=== PATIENT | male | born 2000 | race Caucasian/White ===

== ENCOUNTER 2020-10-10 17:56 | Outpatient (REF) | payer MEDICAID, SELFPAY ==
--- NOTE | 2020-10-10 18:15 | MR_ITS ---
EXAMINATION: MR LUMBAR SPINE WITHOUT CONTRAST CLINICAL INFORMATION: Lumbago with sciatica right side. COMPARISON: Lumbar spine 08/21/2015 TECHNIQUE: MRI of the lumbar spine was obtained using routine sequences without contrast. FINDINGS: There is normal lumbar lordosis. The vertebral heights, alignment, disc heights, and disc signal are preserved. There is loss of T11-T12 disc height with disc desiccation change. At T12-L1 disc level, there is mild broad-based diffuse disc bulge without disc herniation or spinal stenosis. The neural foramina are patent bilaterally. The L1-L2, L2-L3, L3-L4 disc levels are unremarkable. At L4-L5 disc level, there is a broad-based diffuse bulge indenting the ventral thecal sac and resulting in mild AP canal stenosis. The neural foramina are patent bilaterally. At L5-S1 disc level, there is minimal bulge but no disc herniation or spinal stenosis. The neural foramina are patent bilaterally. The bone marrow signal, intraspinal signal and the paravertebral soft tissues are normal. Conus medullaris terminates at T12-L1 disc level and appears normal in morphology. MR/MR lumbar spine wo con IMPRESSION: Broad-based disc bulge T11-T12 disc level with disc desiccation change but no spinal canal stenosis. Mild diffuse bulge at L4-L5 disc level with a small 4 mm disc herniation adjacent to the exiting left L5 nerve root on axial slice 28/7.
== END 2020-10-10 17:57 | disposition home or self-care (01) ==
LOC: HO.MRI 17:56
PROVIDERS: PCP Pediatrics; Visit Provider Pediatrics
DX: M54.41 Lumbago with sciatica, right side (principal)
CPT/HCPCS: 72148

== ENCOUNTER 2021-02-19 10:57 | Emergency (ER) | payer MEDICAID, SELFPAY ==
--- NOTE | ~2021-02-19 | CT_ITS ---
EXAMINATION: CT ABDOMEN AND PELVIS WITHOUT CONTRAST CLINICAL INFORMATION: Epigastric pain 952 COMPARISON: Previous CT of the abdomen and pelvis September 2019 TECHNIQUE: Multidetector volumetric imaging was performed from the superior aspect of the liver through the pubic symphysis. Sagittal and coronal reformatted images were obtained on the technologist's workstation. This CT examination was performed using dose optimization techniques as appropriate, variously including the following: *Automated exposure control *Adjustment of mA and/or kV according to patient size (this includes techniques or standardized protocols for targeted exams where dose is matched to indication/reason for exam; i.e. extremities or head) *Use of iterative reconstruction technique DLP: 952 mGy-cm FINDINGS: LUNG BASES: There is a tiny 1 to 2 mm peripheral left lower lobe nodule axial image 13 series 3 that is stable. The lung bases are otherwise clear. LIVER, GALLBLADDER, AND BILIARY TREE: There is fatty infiltration of the liver. The liver is otherwise unremarkable. The gallbladder is unremarkable. There is no biliary duct dilatation. PANCREAS: Unremarkable. SPLEEN: Unremarkable. ADRENAL GLANDS: Unremarkable. KIDNEYS AND URETERS: The kidneys are normal in size, shape, and attenuation. No hydronephrosis, hydroureter, or calculi seen. No perinephric stranding. BLADDER: Unremarkable. GASTROINTESTINAL TRACT: The small and large bowel are unremarkable. The appendix is unremarkable. ABDOMINAL WALL: No significant hernia is appreciated. LYMPH NODES: Normal. VASCULAR: Unremarkable. PELVIC VISCERA: Unremarkable. OSSEOUS STRUCTURES: Unremarkable. CT/CT abdomen pelvis wo con IMPRESSION: Fatty infiltration of the liver otherwise unremarkable exam.
[2021-02-19 12:01] VITALS: BP 157/97; PULSE 57; RESP 18; TEMP 36.9; O2SAT 99; BMI 37.6
[2021-02-19 12:04] VITALS: PULSE 64
[2021-02-19 12:24] LABS: MANUAL DIFF FLAG NO
[2021-02-19 12:27] LABS: Basophils Absolute Auto 0.1 X10*3/uL (0.0-0.2); Basophils Percent Auto 0.5 % (0-2); Eosinophils Absolute Auto 0.1 X10*3/uL (0.0-0.4); Eosinophils Percent Auto 1.1 % (0-4); Hematocrit 48.1 % (42-52); Imm Gran Abs Auto 0.01 X10*3/uL (0.00-0.03); Imm Gran Pct Auto 0.1 % (0.0-0.4); Lymphocytes Absolute Auto 3.6 X10*3/uL (1.2-4.9); Lymphocytes Percent Auto 38.8 % (20-40); Mean Corpuscular HGB Conc 33.3 g/dl (31.0-36.0); Mean Corpuscular Hemoglobin 28.8 pg (27.0-33.0); Mean Corpuscular Volume 86.7 fL (80-98); Mean Platelet Volume 10.7 fL (9.4-12.4); Monocytes Absolute Auto 0.7 X10*3/uL (0.1-1.2); Monocytes Percent Auto 6.9 % (2-11); Neutrophils Absolute Auto 4.9 X10*3/uL (2.0-8.3); Neutrophils Percent Auto 52.6 % (45-73); Platelet Count 225 X10*3/uL (160-400); Red Blood Count 5.55 X10*6/uL (4.60-5.80); Red Cell Distribution Width 12.3 % (11.0-16.0); White Blood Count 9.4 X10*3/uL (4.8-10.8)
[2021-02-19 12:48] LABS: Glucose Urine UA NEG (NEG); Leukocyte Esterase Urine NEG (NEG); Nitrite Urine NEG (NEG); Specific Gravity - Urine 1.025 (1.005-1.025); Urine Blood NEG (NEG); Urine Ketones NEG (NEG); Urine Protein NEG (NEG-TRACE)
[2021-02-19 12:49] LABS: Appearance Urine CLEAR; Color Urine YELLOW
[2021-02-19 12:57] LABS: Alanine Aminotransferase 51 U/L (0-40); Albumin Level 4.9 g/dL (3.5-5.0); Alkaline Phosphatase 73 U/L (39-117); Anion Gap 11 (12-20); Aspartate Amino Transferase 38 U/L (5-37); Bilirubin Direct < 0.2 mg/dL (0.0-0.5); Bilirubin Total 0.5 mg/dL (0.0-1.0); Blood Urea Nitrogen 13 mg/dL (9-16); Calcium 9.5 mg/dL (8.4-10.2); Carbon Dioxide 27 mmol/L (22-29); Chloride 105 mmol/L (96-108); Creatinine Clr Calc Pharmacy 158.5; Estimated Glomerular Filt Rate > 60; Glucose Random 81 mg/dL (60-115); Lipase 23 U/L (8-78); Potassium 4.3 mmol/L (3.3-5.1); Sodium 139 mmol/L (135-145); Total Protein 8.1 g/dL (6.5-8.0)
--- NOTE | 2021-02-19 13:55 | ED_ITS ---
HPI - Abdominal Pain General Chief Complaint: Abdominal Pain Stated Complaint: abd pain Time Seen by Provider: 02/19/21 13:55 Source: patient Mode of arrival: ambulatory Limitations: no limitations History of Present Illness HPI narrative: 20 yo male with hx of chronic back pain takes naprosyn intermittently, recently on steroid dose taper finished about 2 weeks ago c/o epigastric pain for the last two days, even pushed to have a BM yesterday and noted pain in his abdomen at that time became sweaty and passed out, did hit side of head, has small abrasion above L eye - GCS 15, no vomiting today no AC therapy MD elicited complaint: abdominal pain Onset (ago): day(s) (2) Pain Consistency: intermittent Location: epigastric Severity: mild Quality: aching, fullness and dull Radiation: none Migration to: no migration Exacerbating factors: eating Relieving factors: nothing Context: other (NSAID and steroid use) Associated symptoms: nausea and syncope Related Data Previous Rx's Medication Instructions Recorded lidocaine 1 patch TOPICAL DAILY PRN #10 ea 02/19/21 omeprazole 20 mg PO BID 14 Days #28 cap 02/19/21 Allergies Allergy/AdvReac Type Severity Reaction Status Date / Time cat dander [CAT] Allergy Intermediate ITCHY Verified 02/19/21 12:00 SWOLLEN EYES dog dander [DOG] Allergy Intermediate ITCHY Verified 02/19/21 12:00 WATERY EYES Review of Systems Review of Systems Constitutional : No Weight loss, No Fever, No Chills ENT/Mouth : No sore throat, No Rhinorrhea Eyes: No Swelling, No Redness Cardiovascular : No Chest Pain, No SOB, NoEdema Respiratory : No Cough, No Sputum, No Wheezing Gastrointestinal : Positive Nausea, Positive Vomiting, no Diarrhea, positive abdominal Pain, No Hematochezia, No Melena Genitourinary : No Dysuria, No Urinary Frequency, No Hematuria, No Urgency Musculoskeletal : No joint pain, No Myalgias, No Joint Swelling Skin : No Skin Lesions, No rash Neuro : No Weakness, No Numbness, No Dizziness, No Headache, pos syncope Psych : No Anxiety/Panic, No Depression Heme/Lymph: No Bruising, No Lymphadenopathy Endocrine : No Polyuria, No Polydipsia All other systems reviewed and are negative. Physical Exam Vital Signs: Vital Signs: Last Vital Signs Temp 98.5 F 02/19/21 12:01 Pulse 64 05/10/21 12:04 Resp 18 02/19/21 12:01 BP 157/97 H 02/19/21 12:01 Pulse Ox 99 02/19/21 12:01 Body Mass Index 37.6 Appearance: Alert. Oriented X3. No acute distress. Eyes: Pupils equal, round and reactive to light. ENT: Pharynx normal. Abrasion above L eye near eyebrow line Neck: Normal inspection. Neck supple. CVS: Normal heart rate and rhythm. Pulses normal. Respiratory: No respiratory distress. Breath sounds normal. Abdomen: Soft and mild epigastric ttp no rebound or guarding, negative Sylvester's Skin: Skin warm and dry. Normal skin color. Normal skin turgor. Extremities: No lower extremity edema. No calf ttp Neuro: Oriented X 3. No motor deficit. No sensory deficit. Course Course Course Narrative: negative CT scan stable for DC MDM - Abdominal Pain MDM Narrative Medical decision making narrative: 20 yo male with hx of chronic back pain takes naprosyn intermittently, recently on steroid dose taper finished about 2 weeks ago c/o epigastric pain for the last two days, even pushed to have a BM yesterday and noted pain in his abdomen at that time became sweaty and passed out, did hit side of head, has small abrasion above L eye - GCS 15, no vomiting today no AC therapy at this time will need labs, CT scan to evaluate GB/pancreas though I suspect PUD from NSAIDs and recent prednisone use, syncope was likely vasovagal in nature, GCS 15 head injury 24 hours old and no vomiting no concern for ICH, will likely need PPI use for 2 weeks dispo per results and findings. Lab Data Result diagrams: 02/19/21 12:17 02/19/21 12:17 Labs: Lab Results 02/19/21 02/19/21 02/19/21 Range/Units 12:17 12:17 12:17 WBC 9.4 (4.8-10.8) X10*3/uL RBC 5.55 (4.60-5.80) X10*6/uL Hgb 16.0 (14.0-18.0) g/dl Hct 48.1 (42-52) % MCV 86.7 (80-98) fL MCH 28.8 (27.0-33.0) pg MCHC 33.3 (31.0-36.0) g/dl RDW 12.3 (11.0-16.0) % Plt Count 225 (160-400) X10*3/uL MPV 10.7 (9.4-12.4) fL Immature Gran % (Auto) 0.1 (0.0-0.4) % Neut % (Auto) 52.6 (45-73) % Lymph % (Auto) 38.8 (20-40) % [place] % (Auto) 6.9 (2-11) % Eos % (Auto) 1.1 (0-4) % Baso % (Auto) 0.5 (0-2) % Lymph # (Auto) 3.6 (1.2-4.9) X10*3/uL [place] # (Auto) 0.7 (0.1-1.2) X10*3/uL Eos # (Auto) 0.1 (0.0-0.4) X10*3/uL Baso # (Auto) 0.1 (0.0-0.2) X10*3/uL Abs Immat Gran (auto) 0.01 (0.00-0.03) X10*3/uL Absolute Neuts (auto) 4.9 (2.0-8.3) X10*3/uL Absolute Nucleated RBC 0.000 (0.0-0.012) X10*3/uL Nucleated RBC % (auto) 0.0 (0.0-0.2) /100WBC Sodium 139 (135-145) mmol/L Potassium 4.3 (3.3-5.1) mmol/L Chloride 105 (96-108) mmol/L Carbon Dioxide 27 (22-29) mmol/L Anion Gap 11 L (12-20) BUN 13 (9-16) mg/dL Creatinine 0.99 (0.5-1.4) mg/dL Estim Creat Clear Calc 158.5 Estimated GFR > 60 Random Glucose 81 (60-115) mg/dL Calcium 9.5 (8.4-10.2) mg/dL Total Bilirubin 0.5 (0.0-1.0) mg/dL Direct Bilirubin < 0.2 (0.0-0.5) mg/dL AST 38 H (5-37) U/L ALT 51 H (0-40) U/L Alkaline Phosphatase 73 (39-117) U/L Total Protein 8.1 H (6.5-8.0) g/dL Albumin 4.9 (3.5-5.0) g/dL Lipase 23 (8-78) U/L Urine Color YELLOW Urine Appearance CLEAR Urine pH 6.0 (5.0-8.0) Ur Specific [place] 1.025 (1.005-1.025) Urine Protein NEG (NEG-TRACE) MG/DL Urine Glucose (UA) NEG (NEG) MG/DL Urine Ketones NEG (NEG) MG/DL Urine Blood NEG (NEG) Urine Nitrite NEG (NEG) Ur Leukocyte Esterase NEG (NEG) Discharge Plan Discharge Clinical Impression: Fatty liver, Peptic ulcer disease Patient Disposition: Home, Self-Care Instructions: Peptic Ulcer (ED), Non-Alcoholic Fatty Liver Disease (ED) Additional Instructions: return to ED for any worsening symptoms or concerns Prescriptions: New omeprazole 20 mg capsule,delayed release(DR/EC) 20 mg PO BID 14 Days Qty: 28 RF: 0 lidocaine 4 % adhesive patch,medicated 1 patch topical DAILY PRN (Reason: pain) Qty: 10 RF: 0 Referrals: [facility] [Primary Care Provider] - 2 days (if not better) Stand Alone Forms: Work/School Release [facility] Past Medical History Attestation statement: The following information was validated with the patient. Medical History Back pain Social History Social History (Updated 02/19/21 @ 14:13 by Preethi Justice DO) Alcohol intake: never Smoking Status: Never smoker Advance Directives: Yes Advance Directives Information Provided: Yes Advance Directives on File: No
--- NOTE | 2021-02-19 14:04 | ECG_ITS ---
Test Reason : CHEST PAIN Blood Pressure : / mmHG Vent. Rate : 060 BPM Atrial Rate : 060 BPM P-R Int : 154 ms QRS Dur : 088 ms QT Int : 406 ms P-R-T Axes : 026 071 026 degrees QTc Int : 406 ms Normal sinus rhythm with sinus arrhythmia Normal ECG No previous ECGs available Referred By: Preethi Justice Electronically Signed By:Prashant Lyon
[2021-02-19] MEDS: Omeprazole 20 MG CAPSULE.DR PO (14:16)
[2021-02-19 15:27] VITALS: BP 176/107; PULSE 68; RESP 16; O2SAT 99
== END 2021-02-19 15:33 | disposition home or self-care (01) ==
PROVIDERS: Emergency Provider Emergency Medicine
DX: K76.0 Fatty (change of) liver, not elsewhere classified (principal); K27.9 Peptic ulcer, site unspecified, unspecified as acute or chronic, without hemorrhage or perforation; Z79.899 Other long term (current) drug therapy
CPT/HCPCS: 36415; 74176; 80048; 80076; 81003; 83690; 85025; 93005; 99284

== ENCOUNTER 2021-06-08 12:43 | Emergency (ER) | payer SELFPAY ==
[2021-06-08 13:35] VITALS: BP 144/81; PULSE 60; RESP 18; TEMP 37; O2SAT 99; BMI 39.7
[2021-06-08 15:02] LABS: Glucose Urine UA NEG (NEG); Leukocyte Esterase Urine NEG (NEG); Nitrite Urine NEG (NEG); Specific Gravity - Urine >= 1.030 (1.005-1.025); Urine Blood NEG (NEG); Urine Ketones NEG (NEG); Urine Protein NEG (NEG-TRACE)
[2021-06-08 15:06] LABS: Appearance Urine HAZY; Color Urine YELLOW
[2021-06-08 16:19] LABS: MANUAL DIFF FLAG NO
[2021-06-08 16:22] LABS: Basophils Percent Auto 0.4 % (0-2); Eosinophils Absolute Auto 0.1 X10*3/uL (0.0-0.4); Eosinophils Percent Auto 1.3 % (0-4); Hematocrit 44.8 % (42-52); Hemoglobin 15.1 g/dl (14.0-18.0); Imm Gran Abs Auto 0.02 X10*3/uL (0.00-0.03); Imm Gran Pct Auto 0.2 % (0.0-0.4); Lymphocytes Percent Auto 40.1 % (20-40); Mean Corpuscular HGB Conc 33.7 g/dl (31.0-36.0); Mean Corpuscular Volume 86.2 fL (80-98); Mean Platelet Volume 11.2 fL (9.4-12.4); Monocytes Absolute Auto 0.8 X10*3/uL (0.1-1.2); Monocytes Percent Auto 7.5 % (2-11); Neutrophils Absolute Auto 5.1 X10*3/uL (2.0-8.3); Neutrophils Percent Auto 50.5 % (45-73); Platelet Count 203 X10*3/uL (160-400); Red Cell Distribution Width 12.4 % (11.0-16.0)
[2021-06-08 16:48] LABS: Alanine Aminotransferase 63 U/L (0-40); Albumin Level 4.7 g/dL (3.5-5.0); Alkaline Phosphatase 68 U/L (39-117); Anion Gap 10 (12-20); Aspartate Amino Transferase 41 U/L (5-37); Bilirubin Total 0.6 mg/dL (0.0-1.0); Blood Urea Nitrogen 15 mg/dL (9-16); Calcium 9.6 mg/dL (8.4-10.2); Carbon Dioxide 29 mmol/L (22-29); Chloride 107 mmol/L (96-108); Creatinine Clr Calc Pharmacy 149.5; Estimated Glomerular Filt Rate > 60; Glucose Random 85 mg/dL (60-115); Potassium 4.4 mmol/L (3.3-5.1); Sodium 142 mmol/L (135-145); Total Protein 7.6 g/dL (6.5-8.0)
[2021-06-08 17:26] VITALS: BP 138/74; PULSE 54; RESP 16; O2SAT 98
--- NOTE | 2021-06-08 17:35 | ED_ITS ---
HPI - Abdominal Pain General Chief Complaint: Abdominal Pain Stated Complaint: abd pain Time Seen by Provider: 06/08/21 17:14 Source: patient Mode of arrival: ambulatory Limitations: no limitations History of Present Illness HPI narrative: Patient comes emergency room complaining of 1 month of nausea and intermittent abdominal cramping. Patient states symptoms he is constipated as well. Patient denies vomiting or diarrhea. Patient denies dysuria, no fever chills, no flank, no testicular pain Related Data Previous Rx's Medication Instructions Recorded lidocaine 4 % topical patch 1 patch TOPICAL DAILY PRN #10 ea 02/19/21 omeprazole 20 mg capsule,delayed 20 mg PO BID 14 Days #28 cap 02/19/21 release hyoscyamine sulfate 0.125 mg tablet 0.125 mg PO QID PRN #14 tab 06/08/21 ondansetron HCl 4 mg tablet 4 mg PO Q6H PRN #10 tab 06/08/21 (Zofran) polyethylene glycol 3350 17 17 g PO DAILY #119 g 06/08/21 gram/dose oral powder (Miralax) Allergies Allergy/AdvReac Type Severity Reaction Status Date / Time cat dander [CAT] Allergy Intermediate ITCHY Verified 06/08/21 13:35 SWOLLEN EYES dog dander [DOG] Allergy Intermediate ITCHY Verified 06/08/21 13:35 WATERY EYES Review of Systems Review of Systems Constitutional : No Weight loss, No Fever, No Chills, No Night Sweats, No Fatigue, No Malaise ENT/Mouth : No Hearing loss, No Ear Pain, No Nasal Congestion, No Sinus Pain, No Hoarseness, No sore throat, No Rhinorrhea, No Swallowing Difficulty Eyes: No Eye Pain, No Swelling, No Redness, No Foreign Body, No Discharge, No Vision Changes Cardiovascular : No Chest Pain, No SOB, No Dyspnea on Exertion, No Orthopnea, No Edema, No Palpitations Respiratory : No Cough, No Sputum, No Wheezing, No Smoke Exposure, No Dyspnea Gastrointestinal : Complaining of Nausea intermittently for 1 month, No Vomiting, No Diarrhea, complaining of Constipation, intermittent abdominal cramping, No Hematochezia, No Melena Genitourinary : no irregular bleeding, No Dysuria, No Urinary Frequency, No Hematuria, No Urinary Incontinence, No Urgency, No Flank Pain, No Urinary Flow Changes, No Hesitancy Musculoskeletal : No joint pain, No Myalgias, No Joint Swelling Skin : No Skin Lesions, No rash Neuro : No Weakness, No Numbness, No Paresthesias, No Loss of Consciousness, No Dizziness, No Headache Psych : No Anxiety/Panic, No Depression, No SI/HI/AH/VH, No Social Issues, Heme/Lymph: No Bruising, No Bleeding,No Lymphadenopathy Endocrine : No Polyuria, No Polydipsia, No Temperature Intolerance Physical Exam Vital Signs: Vital Signs: Last Vital Signs Temp 98.6 F 06/08/21 13:35 Pulse 54 06/08/21 17:26 Resp 16 06/08/21 17:26 BP 138/74 06/08/21 17:26 Pulse Ox 98 06/08/21 17:26 Body Mass Index 39.7 Const: Other: Appearance: Alert. Oriented X3. No acute distress. Well- appearing Eyes: Pupils equal, round and reactive to light. ENT: Pharynx normal. Neck: Normal inspection. Neck supple. No lymph nodes noted. No crepitus CVS: Normal heart rate and rhythm. Pulses normal. Normal S1 and S2 Respiratory: No respiratory distress. Breath sounds normal. No Wheezing. No rales Abdomen: Soft and nontender. No rigidity. No distention. good BS x4 Skin: Skin warm and dry. Normal skin color. Normal skin turgor. Extremities: No lower extremity edema. No Lacerations. No Rash Neuro: Oriented X 3. No motor deficit. No sensory deficit. Moving all extermities. No slurred speech. Course Course Course Narrative: I discussed the labs and physical exam with the patient and his mother who is at bedside, no acute findings. Patient instructed to follow- up with his primary care physician. Are slightly bumped, chronic for the patient, likely secondary to fatty liver MDM - Abdominal Pain Lab Data Result diagrams: 06/08/21 16:02 06/08/21 16:02 Labs: Lab Results 06/08/21 06/08/21 06/08/21 Range/Units 14:45 16:02 16:02 WBC 10.0 (4.8-10.8) X10*3/uL RBC 5.20 (4.60-5.80) X10*6/uL Hgb 15.1 (14.0-18.0) g/dl Hct 44.8 (42-52) % MCV 86.2 (80-98) fL MCH 29.0 (27.0-33.0) pg MCHC 33.7 (31.0-36.0) g/dl RDW 12.4 (11.0-16.0) % Plt Count 203 (160-400) X10*3/uL MPV 11.2 (9.4-12.4) fL Immature Gran % (Auto) 0.2 (0.0-0.4) % Neut % (Auto) 50.5 (45-73) % Lymph % (Auto) 40.1 H (20-40) % [place] % (Auto) 7.5 (2-11) % Eos % (Auto) 1.3 (0-4) % Baso % (Auto) 0.4 (0-2) % Lymph # (Auto) 4.0 (1.2-4.9) X10*3/uL [place] # (Auto) 0.8 (0.1-1.2) X10*3/uL Eos # (Auto) 0.1 (0.0-0.4) X10*3/uL Baso # (Auto) 0.0 (0.0-0.2) X10*3/uL Abs Immat Gran (auto) 0.02 (0.00-0.03) X10*3/uL Absolute Neuts (auto) 5.1 (2.0-8.3) X10*3/uL Absolute Nucleated RBC 0.000 (0.0-0.012) X10*3/uL Nucleated RBC % (auto) 0.0 (0.0-0.2) /100WBC Sodium 142 (135-145) mmol/L Potassium 4.4 (3.3-5.1) mmol/L Chloride 107 (96-108) mmol/L Carbon Dioxide 29 (22-29) mmol/L Anion Gap 10 L (12-20) BUN 15 (9-16) mg/dL Creatinine 1.08 (0.5-1.4) mg/dL Estim Creat Clear Calc 149.5 Estimated GFR > 60 Random Glucose 85 (60-115) mg/dL Calcium 9.6 (8.4-10.2) mg/dL Total Bilirubin 0.6 (0.0-1.0) mg/dL AST 41 H (5-37) U/L ALT 63 H (0-40) U/L Alkaline Phosphatase 68 (39-117) U/L Total Protein 7.6 (6.5-8.0) g/dL Albumin 4.7 (3.5-5.0) g/dL Urine Color YELLOW Urine Appearance HAZY Urine pH 6.0 (5.0-8.0) Ur Specific [place] >= 1.030 H (1.005-1.025) Urine Protein NEG (NEG-TRACE) MG/DL Urine Glucose (UA) NEG (NEG) MG/DL Urine Ketones NEG (NEG) MG/DL Urine Blood NEG (NEG) Urine Nitrite NEG (NEG) Ur Leukocyte Esterase NEG (NEG) Discharge Plan Discharge Clinical Impression: Chronic abdominal pain, Nausea Patient Disposition: Home, Self-Care Instructions: Abdominal Pain (ED) Additional Instructions: Please follow-up with your primary care physician tomorrow. If you have any worsening or new symptoms, please return to the emergency room or call 911 Prescriptions: New ondansetron HCl [Zofran] 4 mg tablet 4 mg PO Q6H PRN (Reason: nausea and vomiting) Qty: 10 RF: 0 hyoscyamine sulfate 0.125 mg tablet 0.125 mg PO QID PRN (Reason: dyspepsia) Qty: 14 RF: 0 polyethylene glycol 3350 [Miralax] 17 gram/dose powder 17 g PO DAILY Qty: 119 RF: 0 No Action omeprazole 20 mg capsule,delayed release(DR/EC) 20 mg PO BID 14 Days Qty: 28 RF: 0 lidocaine 4 % adhesive patch,medicated 1 patch topical DAILY PRN (Reason: pain) Qty: 10 RF: 0 PMFSH Past Medical History Medical History Back pain Social History Social History (Updated 02/19/21 @ 14:13 by Preethi Justice DO) Alcohol intake: never Advance Directives: No Advance Directives Information Provided: No
== END 2021-06-08 17:46 | disposition home or self-care (01) ==
PROVIDERS: Emergency Provider Emergency Medicine
DX: G89.29 Other chronic pain (principal); R10.9 Unspecified abdominal pain; R11.0 Nausea
CPT/HCPCS: 36415; 80053; 81003; 85025; 99283; 99284